=== PATIENT | female | born 1975 | race Caucasian/White ===

== ENCOUNTER → 2020-08-15 | Outpatient (CLI) | payer OTHER ==
[~2020-08-15] MED LIST: COLACE100 MG PO; HYDROCODON-ACE1 EAC2 PO; HYDROCODON-ACE1 EAC4 PO; PAXIL40 MG PO; ZOFRAN ODT 4 MG4 MG SL
== END ==
LOC: MAMO 07-15 14:30 → US 07-15 14:30 → MAMO 10:00 → US 11:00 → MAMO 11:00 → US 12:50
DX: R92.1 Mammographic calcification found on diagnostic imaging of breast (principal); Z78.0 Asymptomatic menopausal state
CPT/HCPCS: 76641-LT; 76641-RT; 77066; G0279

== ENCOUNTER → 2020-10-16 | Outpatient (CLI) | payer OTHER | LOC: KOH-I 12:26 | DX: R10.84 Generalized abdominal pain (principal) | CPT/HCPCS: 74022 ==

== ENCOUNTER 2020-10-22 15:53 | Emergency (ER) | payer OTHER ==
[2020-10-22 20:20] LABS: RED BLOOD COUNT 4.5 M/UL (4.00-5.10); WHITE BLOOD COUNT 8.6 K/UL (4.5-11.0)
[2020-10-22] MEDS ORDERED: ZOFRAN ODT 4 MG4 MG SL (22:39)
[2020-12-03] MEDS ORDERED: PAXIL40 MG PO (13:23)
[2020-12-04] MEDS ORDERED: COLACE100 MG PO (10:23)
[2020-12-04] MEDS ORDERED: HYDROCODON-ACE1 EAC2 PO (10:23)
== END 2020-10-22 22:46 | disposition home or self-care (01) ==
LOC: ER1 15:53
PROVIDERS: Emergency Medicine
DX: K81.9 Cholecystitis, unspecified (principal); Z20.822 Contact with and (suspected) exposure to COVID-19; Z88.1 Allergy status to other antibiotic agents; Z88.8 Allergy status to other drugs, medicaments and biological substances
CPT/HCPCS: 80053; 80307; 81001; 83690; 83735; 84100; 85025; 85610; 85730; 86403; 99284; G0480; J7030; Q9967; U0002

== ENCOUNTER → 2020-11-20 | Outpatient (CLI) | payer OTHER | LOC: US 09:30 | DX: R10.11 Right upper quadrant pain (principal); K76.0 Fatty (change of) liver, not elsewhere classified; N28.1 Cyst of kidney, acquired; K80.80 Other cholelithiasis without obstruction | CPT/HCPCS: 76705 ==

== ENCOUNTER 2020-11-23 20:50 | Emergency (ER) | payer OTHER ==
[~2020-11-23 20:50] MED LIST changes: -COLACE100 MG PO; -HYDROCODON-ACE1 EAC2 PO; -HYDROCODON-ACE1 EAC4 PO; -PAXIL40 MG PO
[2020-11-23 21:38] LABS: HEMOGLOBIN 13.2 gm/dl (12.3-15.3); RED BLOOD COUNT 4.24 M/UL (4.00-5.10)
[2020-11-23 21:50] LABS: BUN/CREATININE RATIO 14 (0-10)
[2020-11-23] MEDS ORDERED: HYDROCODON-ACE1 EAC4 PO (23:11)
[2020-11-23] MEDS ORDERED: ZOFRAN ODT 4 MG4 MG SL (23:11)
[2020-12-03] MEDS ORDERED: PAXIL40 MG PO (13:23)
[2020-12-04] MEDS ORDERED: COLACE100 MG PO (10:23)
[2020-12-04] MEDS ORDERED: HYDROCODON-ACE1 EAC2 PO (10:23)
== END 2020-11-23 22:32 | disposition home or self-care (01) ==
LOC: ER1 20:50
PROVIDERS: Emergency Medicine
DX: K80.50 Calculus of bile duct without cholangitis or cholecystitis without obstruction (principal); Z90.710 Acquired absence of both cervix and uterus
CPT/HCPCS: 80053; 81001; 82550; 82553; 83690; 83874; 84484; 85025; 87086; 93005; 96374; 96375; 99284; J2270; J2405

== ENCOUNTER → 2020-12-04 | Day surgery (SDC) | payer OTHER ==
[~2020-12-04] MED LIST changes: +COLACE100 MG PO; +HYDROCODON-ACE1 EAC2 PO; +HYDROCODON-ACE1 EAC4 PO; +PAXIL40 MG PO
== END | disposition home or self-care (01) ==
LOC: OR 07:22
DX: K80.20 Calculus of gallbladder without cholecystitis without obstruction (principal); E66.9 Obesity, unspecified; K76.0 Fatty (change of) liver, not elsewhere classified; M19.90 Unspecified osteoarthritis, unspecified site; F32.9 Major depressive disorder, single episode, unspecified
CPT/HCPCS: J0690; J1100; J1885; J2001; J2250; J2405; J2550; J2704; J2710; J3010; J7030; J7120